=== PATIENT | female | born 1995 | race Caucasian/White ===

== ENCOUNTER 2016-11-16 07:07 | Emergency (ER) | payer MEDICAID ==
[2016-11-16] MEDS ORDERED: HYDROmorphone HCL 1 MG/ML DISP.SYRIN IV ONE ×2 (07:32→09:29)
[2016-11-16] MEDS ORDERED: ONDANSETRON 4 MG TAB.RAPDIS PO ONE (07:32)
[2016-11-16] MEDS ORDERED: ONDANSETRON HCL/PF 2 MG/ML VIAL ONE (07:33)
[2016-11-16] MEDS ORDERED: HYDROmorphone HCL 1 MG/ML DISP.SYRIN ONE ×2 (07:33→09:30)
[2016-11-16 07:42] LABS: Hematocrit 40.6 % (37.0-47.0); Hemoglobin 13.5 gm/dL (12.5-16.0); Mean Cell Volume 87.7 fl (78-100); Mean Corpuscular Hemoglobin 29.2 pg (27-31); Mean Corpuscular Hgb Conc 33.3 g/dl (32-36); Mean Platelet Volume 10.9 fl (6.0-9.5); Neutrophil # 7.8 K/mm3 (1.3-6.0); Neutrophil % 73.9 % (42-75.0); Platelet Count 221 K/mm3 (150-450); Red Blood Count 4.63 M/mm3 (4.2-5.4); White Blood Count 10.6 K/mm3 (4.0-10.5)
--- NOTE | 2016-11-16 07:43 | ERNOTE ---
<Sonia Harrison - Last Filed: 11/16/16 09:48> ER Female HPI Stated Complaint: BACK PAIN Immunizations: IMMUNIZATION HX Immunizations Up to Date Yes History of Influenza Vaccine No Allergies/Adverse Reactions: Allergies codeine Allergy (Intermediate, Verified 11/16/16 07:15) Vomiting Home Medications: HOME MEDICATIONS Cyclobenzaprine HCl [Flexeril] 10 mg PO TID PRN #30 tab 11/16/16 [Last Taken Unknown] Ibuprofen [Motrin] 800 mg PO TID PRN #60 tab 11/16/16 [Last Taken Unknown] oxyCODONE HCL/ACETAMINOPHEN [Percocet 5 MG/325 MG] 1 tab PO Q4H PRN #20 tab [Last Taken Unknown] - History of Present Illness Narrative: patient started with left lower back pain radiating to left thigh, pain worse with movement, pain more severe than with kidney stones Physical Exam - Physical Exam General Appearance: Present: wd/wn, alert, mild distress, anxious Back Exam: Present: no CVA tenderness, muscle spasm - lumbar left paraspinal, other - pain with straight leg raise Neurological Exam: Present: alert, oriented, normal mood/affect, no motor/ sensory deficits Skin Exam: Present: normal color, warm/dry ED Progress - Results and Orders Patient's Lab Results:: I have reviewed the patient's lab results. - Vital Signs Patient's Vital Signs:: I have reviewed the patient's vital signs. Vital Signs: Vital Signs 11/16/16 07:10 Temperature 36.2 C L Pulse Rate 91 Respiratory 16 Rate Blood Pressure 137/76 O2 Sat by Pulse 96 Oximetry - CT/Ultrasound CT/Ultrasound Narrative: CT abdomen/pelvis: no stone, L4/5 and L5/S1 disc disease - Progress/Reassessment Chief Complaint: Genitourinary Problem Progress Note-Subjective: 11/16/16 09:[address] results and plan for sciatica Departure Clinical Impression: Sciatica of left side - Departure Disposition: Home self-care Condition: Good Instructions: Sciatica, [id number], Form - Excuse from Work, School, or Physical Activity Additional Instructions: call your doctor for follow up you might benefit from physical therapy Referrals: Ramiro Paige DO [Pharmacy] - Prescriptions: Cyclobenzaprine HCl [Flexeril] 10 mg PO TID PRN #30 tab PRN Reason: MUSCLE SPASMS Ibuprofen [Motrin] 800 mg PO TID PRN #60 tab PRN Reason: Pain oxyCODONE HCL/ACETAMINOPHEN [Percocet 5 MG/325 MG] 1 tab PO Q4H PRN #20 tab PRN Reason: Pain <Greg Ibrahim - Last Filed: 01/28/17 18:26> ER Female HPI Date of Service: 11/16/16 Source: patient Exam Limitations: no limitations Immunizations: IMMUNIZATION HX Immunizations Up to Date Yes History of Influenza Vaccine No - History of Present Illness Narrative: 21 year old that had a sudden onset of right lower back pain that was severe and unrelenting since yesterday. She has not been able to get off of the couch since yesterday due to the severity of the pain. The pain is similar to when she has had renal stones but is more severe. Movement increases the pain. No radiation to the abdomen. Denies any fevers, chills, dysuria, fevers, chill, N/ V. Has taken Motrin yesterday without relief of the pain. Timing: Present: constant, getting worse Quality: Present: severe, sharpness Onset Location: Present: other - left lower back Radiation: Present: none Activities at Onset: Present: none Prior Abdominal Problems: Present: none Sexual [place] History: Present: single partner Modifying Factors - (Improves): Present: other - being still minimally decreases the pain Modifying Factors - (Worsens): Present: movement Associated Symptoms: Present: denies symptoms Review of Systems - Review of Systems Constitutional: Present: no symptoms reported EYE: Present: no symptoms reported ENT: Present: no symptoms reported Respiratory: Present: no symptoms reported Cardiology: Present: no symptoms reported Gastrointestinal/Abdominal: Present: no symptoms reported Genitourinary: Present: no symptoms reported Musculoskeletal: Present: no symptoms reported Skin: Present: no symptoms reported Neurological: Present: no symptoms reported Endocrine: Present: no symptoms reported Hematologic/Lymphatic: Present: no symptoms reported Psych: Present: no symptoms reported - Patient's Past Medical History Patient History - Medical: Kidney stone, UTI'S Patient History - Cancer: No Hx of Cancer Patient History - Surgical Procedures: No surgical history Patient History - Other: None - Family History Mother Family History - Medical: Diabetes Type 2, Hypothyroidism Family History - Cardiac/Respiratory: Hypertension, Hyperlipidemia - Social History Living Situations: significant other Abuse History: No History of abuse Psych History: No pertinent hx Smoking Status: Current every day smoker Have you smoked in the past 12 months: Yes Alcohol Use: none Drug Use: none - Immunizations Immunizations Up to Date: Yes History of Influenza Vaccine: No Physical Exam - Physical Exam General Appearance: Present: alert, moderate distress, other - crying loudly. Eye Exam: Normal inspection: bilateral, PERRL: bilateral Ears, Nose, Throat: Present: normal ENT inspection Neck: Present: normal inspection Respiratory: Present: no respiratory distress Cardiovascular/Chest: Present: regular rate, rhythm Gastrointestinal/Abdominal: Present: nontender, nondistended Back Exam: Present: normal inspection, no CVA tenderness, other - tenderness at the left paraspinal musculature at the lower back. Extremity Exam: Present: normal inspection Neurological Exam: Present: alert, oriented, normal mood/affect Skin Exam: Present: normal color, warm/dry ED Progress - Vital Signs Patient's Vital Signs:: I have reviewed the patient's vital signs. Vital Signs: Vital Signs 11/16/16 07:10 Temperature 36.2 C L Pulse Rate 91 Respiratory 16 Rate Blood Pressure 137/76 O2 Sat by Pulse 96 Oximetry - Transfer of Care Physician Sign Out: Greg Ibrahim Receiving Physician: Sonia Harrison Pending Results: CT/MRI results, Labs Expected Disposition: Discharge
[2016-11-16] MEDS ORDERED: ONDANSETRON HCL/PF 2 MG/ML VIAL IV ONE (07:52)
[2016-11-16 07:54] LABS: Anion Gap 14.5 mmol/L (6.8-13.8); BUN/Creatinine Ratio 18.2 (9.0-21.6); Calcium * 8.5 mg/dL (7.9-10.9); Carbon Dioxide 23.9 mmol/L (24-32.6); Estimated Creat Clear 98.1; Potassium 4.4 mmol/L (3.4-4.6)
[2016-11-16 07:56] LABS: Urine Bilirubin Negative (NEGATIVE); Urine Blood Negative /ul (NEGATIVE); Urine Ketone Negative (NEGATIVE); Urine Nitrite Negative (NEGATIVE); Urine Protein Negative (NEGATIVE); Urine Specific Gravity 1.015 SP.GR. (1.005-1.010); Urine Urobilinogen Normal (NORMAL); Urine pH 5.5 pH (5.0-7.0)
[2016-11-16 08:02] LABS: Urine Appearance Clear; Urine Bacteria None Seen; Urine Color Yellow; Urine RBC None Seen /hpf (0-5); Urine WBC None Seen /hpf (0-5)
[2016-11-16 09:22] VITALS: BP 123/92
--- OUTSIDE RECORDS SUMMARY | 2016-11-16 10:30 | XMS REPORT | Continuity of Care Document ---
:1995 Author Organization [facility] [place] [address] Care Team Providers Name Role Phone Unavailable Primary Care Provider Unavailable Source Comments This disclosure is being made pursuant to the [employer] program and maynot contain all information available regarding this patient.[facility] Active Allergies and Adverse Reactions Not on File Current Medications Be aware that medications may not be up to date as of this document. Alwaysverify current medications with the patient. Not on file Active Problems Not on file Social History Tobacco Use Types Packs/Day Years Used Date Never Assessed Plan of Care Health Maintenance Due Date Last Done Comments HPV Vaccine ([id number]) (1 of 3 - Female 3 Dose Series) 2004 Chlamydia Screening 2009 Tetanus/Pertussis (1 - Tdap) 2012 Pap Smear 2014 Influenza Immunization (#1) 2016 Results from Last 3 Months Not on file
== END 2016-11-16 10:00 | disposition home or self-care (01) ==
LOC: ER 07:07
PROC: 0T9B7ZZ Drainage of Bladder, Via Natural or Artificial Opening (ICD-10-PCS; principal; 2016-11-16)
DX: M54.32 Sciatica, left side (principal); Z87.442 Personal history of urinary calculi; Z87.440 Personal history of urinary (tract) infections; F17.200 Nicotine dependence, unspecified, uncomplicated